=== PATIENT | female | born 1940 | race Caucasian/White ===

== ENCOUNTER 2020-09-07 12:30 | Outpatient (CLI) | payer MEDICARE | END 2020-09-07 23:59 | disposition home or self-care (01) | LOC: CVU 12:30 | PROVIDERS: ATTEND Internal Medicine Cardiovascular Disease | DX: I34.0 Nonrheumatic mitral (valve) insufficiency (principal); I83.92 Asymptomatic varicose veins of left lower extremity; R60.0 Localized edema; I87.2 Venous insufficiency (chronic) (peripheral) | CPT/HCPCS: 93306; 93356; 93970 ==